=== PATIENT | female | born 2000 | race Caucasian/White ===

== ENCOUNTER 2019-02-09 11:34 | Emergency (ER) | payer OTHER ==
[~2019-02-09] VITALS: Ht 152.4 cm; Wt 54.1 kg
[2019-02-09 11:41] VITALS: BP 123/89
[2019-02-09] MEDS ORDERED: ALBUTEROL SULFATE 2.5 MG/3 ML ONE (11:59)
[2019-02-09] MEDS ORDERED: ALBUTEROL SULFATE 2.5 MG/3 ML NPPB ONE (12:00)
--- NOTE | 2019-02-09 12:56 | NUR ---
PT GIVEN DC INSTRUCTIONS AND SCRIPTS. PT EDUCATED REGARDING DC MEDICATIONS. PT AMB TO DC WITH STEADY GAIT. NO ACUTE DISTRESS AT DC.
== END 2019-02-09 13:18 | disposition home or self-care (01) ==
LOC: ED 13:11
DX: J45.31 Mild persistent asthma with (acute) exacerbation (principal)
CPT/HCPCS: 71046; 94640; 99283; J7512; J7613

== ENCOUNTER 2019-02-11 09:27 | Emergency (ER) | payer OTHER ==
[~2019-02-11] VITALS: Ht 152.4 cm; Wt 55.0 kg
--- NOTE | 2019-02-11 09:30 | NUR ---
PT ARRIVED TO ROOM 3 AMBULATORY WITH SISTER. PT C/O ASTHMA ATTACK X 2 HOURS. PT HAS USED 2 NEB TX WITH NO RESULTS DX WITH URI A COUPLE OF DAYS AGO. UNABLE TO FILL THE PREDNISONE THAT WAS PRESCRIBED DUE TO INSURANCE COVERAGE. PT VSS, DRESSED IN GOWN AND RESTING ON GURNEY. ON ROOM AIR AND O2 SATS 100%. PT AAO X 4.
[2019-02-11] MEDS ORDERED: ALBU0.63 NEB (09:54)
[2019-02-11] MEDS ORDERED: CETI10CA PO (09:54)
[2019-02-11] MEDS ORDERED: BUDE10.2 INH (09:54)
[2019-02-11] MEDS ORDERED: ALBUTEROL SULFATE 2.5 MG/3 ML NPPB ONE (10:00)
[2019-02-11] MEDS ORDERED: ALBUTEROL SULFATE 2.5 MG/3 ML ONE (10:17)
[2019-02-11 10:21] VITALS: BP 97/66
--- NOTE | 2019-02-11 10:21 | NUR ---
RT AT BEDSIDE FOR BREATHING TX.
--- NOTE | 2019-02-11 10:55 | NUR ---
Patient/Caregiver given discharge instructions and they have confirmed that they understand the instructions. Patient ambulatory with steady gait.
== END 2019-02-11 10:57 | disposition home or self-care (01) ==
LOC: ED 10:05
DX: J45.41 Moderate persistent asthma with (acute) exacerbation (principal); Z88.2 Allergy status to sulfonamides; Z91.013 Allergy to seafood
CPT/HCPCS: 93005; 94640; 99283; J7512

== ENCOUNTER 2019-02-17 20:20 | Emergency (ER) | payer MEDICAID, OTHER ==
[~2019-02-17] VITALS: Ht 152.4 cm; Wt 54.2 kg
[~2019-02-17 20:20] MED LIST: ALBU0.63 NEB; BUDE10.2 INH; CETI10CA PO
[2019-02-17 20:29] VITALS: BP 121/77
--- NOTE | 2019-02-17 20:43 | NUR ---
CONGESTION, INCREASE IN PHLEGM, COUGH. PT HAS BEEN ON [place] BUT NOT IMPROVING.
== END 2019-02-17 22:26 | disposition home or self-care (01) ==
LOC: ED 20:41
DX: B34.9 Viral infection, unspecified (principal); J45.909 Unspecified asthma, uncomplicated; Z88.2 Allergy status to sulfonamides; Z91.013 Allergy to seafood
CPT/HCPCS: 71046; 99283

== ENCOUNTER 2019-02-18 19:59 | Emergency (ER) | payer MEDICAID ==
[~2019-02-18] VITALS: Ht 152.4 cm; Wt 53.7 kg
[2019-02-18 20:12] VITALS: BP 122/86
[2019-02-18] MEDS ORDERED: ALBUTEROL SULFATE 2.5 MG/3 ML NPPB ONE (20:28)
--- NOTE | 2019-02-18 20:29 | NUR ---
PT HERE FOR RESP DISTRESS, PT NEEDING TREATMENT. PT IS VERY WHEEZY THROUGHOUT LUNG LAM. PT BREATHING QUICKLY AND WITH EFFORT. RT PAGED.
[2019-02-18] MEDS ORDERED: ALBUTEROL SULFATE 2.5 MG/3 ML ONE (20:37)
--- NOTE | 2019-02-18 21:19 | NUR ---
Patient/Caregiver given discharge instructions and they have confirmed that they understand the instructions. Patient ambulatory with steady gait. PT RECIEVED ALBUTEROL 30 MINUTES PRIOR TO DC.
== END 2019-02-18 21:21 | disposition home or self-care (01) ==
LOC: ED 20:51
DX: J45.31 Mild persistent asthma with (acute) exacerbation (principal)
CPT/HCPCS: 94640; 99283; J7613